=== PATIENT | female | born 1950 | race Caucasian/White ===

== ENCOUNTER → 2017-02-20 | Outpatient (CLI) | payer MEDICARE, OTHER ==
--- NOTE | ~2017-02-20 | PUL ---
PATIENT'S NAME: PAUL [facility]EL [facility] AGE: 67 Y [address] ROOM: [place] [id number] LOCATION: [facility] ADMIT DATE: 02/20/2017 Pulmonary DISCHARGE DATE: FAMILY PHYSICIAN: Margaret Garcia MD ATTENDING PHYSICIAN: Syl Levy Corrected reason for exam 02/24/17 AO NAME OF PROCEDURE: Pulmonary Function Test DATE OF PROCEDURE: February 20, 2017 REASON FOR EXAM: Asthma. RESULTS: 1. FVC was 2.49 liters which is 78% of predicted and low, FEV1 was 1.75 liters which is 72% of predicted and low, and FEV1/FVC was 70% and normal. The flow volume curve did not reveal any significant airflow limitation. After bronchodilator administration FVC increased to 2.61 liters, which is a 5% increase, and FEV1 increased to 1.93 liters which is a 10% increase. FEV1/FVC was 74%. 2. DLCO and adjusted DLCO were 19.5 which is 73% of predicted and normal. 3. Total lung capacity was 4.5 liters which is 93% of predicted and normal, and residual volume was 1.82 liters which is 97% of predicted and normal. PHYSICIAN INTERPRETATION: The patient has no airflow limitation and no significant bronchodilator response. Her diffusion capacity is normal. There is no evidence of restrictive lung disease. She had nonspecific reduction in FEV1 and FVC which can be seen in chronic airway disease. Clinical correlation is advised. MD JESSE TEJEDA/willian /[id number] dtt: 02/24/17 1521 , ANDRE STARKEY dtd: 02/24/17 1441
== END | disposition disaster alternative care site (69) ==
LOC: GRTH 10:53
DX: J45.909 Unspecified asthma, uncomplicated (principal); R05 Cough